=== PATIENT | female | born 1995 | race Caucasian/White ===

== ENCOUNTER 2024-11-25 19:02 | Outpatient (REF) | payer OTHER, SELFPAY ==
[2024-11-28 13:10] LABS: Age Gdln ACOG Testing Note (.); HPV Aptima Negative (Negative); IGP, Aptima HPV, rfx 16/18,45 Note (.)
== END 2024-11-25 19:03 | disposition home or self-care (01) ==
LOC: LAB 19:02
PROVIDERS: Visit Provider Obstetrics & Gynecology
DX: Z01.419 Encounter for gynecological examination (general) (routine) without abnormal findings (principal)
CPT/HCPCS: 87624; 88175

== ENCOUNTER 2024-12-17 12:56 | Outpatient (OUT) | payer OTHER, SELFPAY ==
--- OUTSIDE RECORDS SUMMARY | 2024-05-01 11:15 | XMS_ITS ---
Author Organization [facility] vices Address [address] [place], [place] [address] Care Team Providers Care Adult Remedial Education Instructor Name Role Phone Danette Lawson Primary Care Provider Edwina Jacobs REASON FOR VISIT GERD UC pt Social History Sex Assigned At : Social History Observation Description Sex Assigned At Female Encounters Encounter Location Date Provider Diagnosis Main [address] , [place] [id number] 05/01/2024 Edwina Jacobs Plan Of Treatment No Information Progress Notes * Shimon BUITRAGO LDOB: 4 (29 yo F)Acc No.[id number]:05/01/2024 Medical Note Patient: Shimon BA Provider: SYLWIA Farris :1995 A ge:28 Y S ex:Female Date:05/01/2024 Address:[address] [facility] Pcp:Danette Lawson Subjective: * Chief Complaints: * 1 . GERD UC pt. * Medical History: Objective: * Vitals: Assessment: Plan: * Treatment: * Billing Information: * Visit Code: * Procedure Codes: * Electronic signature of SYLWIA Rodriguez on 12/17/2024 at 10:22 AM EDT Sign off status: Pending * Provider: SYLWIA Farris Date: 1 Generated for Shana holloway/Naz/Audrey on: 0 12/17/2024 10:22 AM EDT
--- OUTSIDE RECORDS SUMMARY | 2024-05-01 11:30 | XMS_ITS ---
Author Organization [facility] vices Address [address], [place] [address] Care Team Providers Care Wool Hat Hydraulicker Name Role Phone Danette Lawson Primary Care Provider [phone] Jesus Whittington [phone] REASON FOR VISIT GERD Social History Sex Assigned At : Social History Observation Description Sex Assigned At Female Encounters Encounter Location Date Provider Diagnosis Main [address] [place] [id number] 05/01/2024 Jesus Delgado Plan Of Treatment No Information Progress Notes * Shimon BUITRAGO LDOB: 4 (29 yo F)Acc No.[id number]:05/01/2024 Medical Note Patient: Shimon BA Provider: Christopher Delgado PA-C :1995 A ge:28 Y S ex:Female Date:05/01/2024 Address:[address] [facility] Pcp:Danette Lawson Subjective: * Chief Complaints: * 1 . GERD. * Medical History: Objective: * Vitals: Assessment: Plan: * Treatment: * Billing Information: * Visit Code: * Procedure Codes: * Electronic signature of CYN Murry on 12/17/2024 at 10:22 AM EDT Sign off status: Pending * Provider: Christopher Delgado PA-C Date: Generated for Shana holloway/Naz/Audrey on: 0 12/17/2024 10:22 AM EDT
--- OUTSIDE RECORDS SUMMARY | 2024-12-11 09:00 | XMS_ITS | Encounter Summary ---
Author Organization [facility] Address [address] [place] [address] Care Team Providers Care Soda Tester Name Role Phone Unavailable Primary Care Provider Unavailabl e Encounter Details Date Type Department Care Team (Latest Contact Info) Description 12/11/2024 9:00 AM EDT Ancillary Procedure [facility] OB [address] [place], [place] [address] [address] Pain of ovary; Endometriosis Social History Tobacco Use Types Packs/Day Years Used Date Smoking Tobacco: Never Assessed Comments No Sex and Gender Information Value Date Recorded Sex Assigned at Not on file Legal Sex Female 11:47 PM EDT Gender Identity Not on file Sexual Orientation Not on file documented as of this encounter Plan of Treatment Upcoming Encounters Date Type Department Care Team (Late st Contact Info) Description 04/20/2025 9:10 AM EDT Consult [facility] [address] [place] [address] Lalo Friedman, [facility] [place], [place] [address] documented as of this encounter Procedures Procedure Name Priority Date/Time Associated Diagnosis Comments US PELVIC COMPLETE W/ TV Routine 12/11/2024 9:22 AM EDT Pain of ovary Endometriosis documented in this encounter Results * US Pelvis w/ TV (12/11/2024 9:22 AM EDT) Anatomical Region Laterality Modality Pelvis Ultrasound 12/11/2024 6:01 PM EDT Narrative 12/11/2024 6:01 PM EDT EXAM: Pelvic Ultrasound, Transvaginal. REASON FOR EXAM: Left lower quadrant pain, endometriosis. COMPARISON: No comparison TECHNIQUE: Grayscale imaging with color Doppler is performed. FINDINGS: Bladder: Smooth normal margins. No obvious masses or diverticula. Myometrium: Smooth normal echogenicity without focal masses. Endometrium: Normal thickness and echogenicity echogenicity without fluid. Cul-de-sac: No significant free fluid present. Right Ovary: Normal follicles. Normal size and echogenicity. Intact blood flow. Left Ovary: Anechoic structure with internal echoes left ovary 5.0 x 3.6 x 3.4 cm. Normal size and echogenicity. Intact blood flow. Measurements: Uterus: 8.0 x 3.2 x 4.9 cm Volume: 65.9 cc EM: 6 mm Normal Right Ovary: 3.0 x 1.6 x 1.6 cm Volume: 4.1 cc Left Ovary: 6.2 x 4.4 x 4.6 cm Volume: 65.0 cc IMPRESSION: 1. Possible complex cyst or endometrioma related to the left ovary measuring up to 5 cm. 2. Otherwise, negative pelvic ultrasonographic evaluation. *This report is generated using voice recognition reporting (Wooshii). On occasion [employer] erroneously drops words from the report or replaces the spoken word with similar sounding words. Please call with any questions/concerns regarding this report.* Dictated and transcribed 12/11/24/dpd This report has been electronically signed and approved by the interpreting radiologist. Procedure Note uJdson Wan MD - 12/11/2024 EXAM: Pelvic Ultrasound, Transvaginal. REASON FOR EXAM: Left lower quadrant pain, endometriosis. COMPARISON: No comparison TECHNIQUE: Grayscale imaging with color Doppler is performed. FINDINGS: Bladder: Smooth normal margins. No obvious masses or diverticula. Myometrium: Smooth normal echogenicity without focal masses. Endometrium: Normal thickness and echogenicity echogenicity withoutfluid. Cul-de-sac: No significant free fluid present. Right Ovary: Normal follicles. Normal size and echogenicity. Intact bloodflow. Left Ovary: Anechoic structure with internal echoes left ovary 5.0 x 3.6 x3.4 cm. Normal size and echogenicity. Intact blood flow. Measurements: Uterus: 8.0 x 3.2 x 4.9 cm Volume: 65.9 cc EM: 6 mm Normal Right Ovary: 3.0 x 1.6 x 1.6 cm Volume: 4.1 cc Left Ovary: 6.2 x 4.4 x 4.6 cm Volume: 65.0 cc IMPRESSION: 1. Possible complex cyst or endometrioma related to the left ovarymeasuring up to 5 cm. 2. Otherwise, negative pelvic ultrasonographic evaluation. *This report is generated using voice recognition reporting (Wooshii).On occasion Wooshii erroneously drops words from the report orreplaces the spoken word with similar sounding words. Please call with anyquestions/concerns regarding this report.* Dictated and transcribed 12/11/24/dpd This report has been electronically signed and approved by theinterpreting radiologist. us Lalo STANFORD US PROCEDURES Final Result documented in this encounter Visit Diagnoses Diagnosis Pain of ovary Endometriosis Endometriosis, site unspecified documented in this encounter
--- OUTSIDE RECORDS SUMMARY | 2024-12-17 13:04 | XMS_ITS | Clinical Summary ---
Author Organization [facility] tem Address [id number] [address] [place] [address] Care Team Providers Care Set Up Worker Name Role Phone Unavailable Primary Care Provider Unavailabl e Allergies No known active allergies Medications No known medications Social History Tobacco Use Types Packs/Day Years Used Date Smoking Tobacco: Every Day Childcare Answer Date Recorded Childcare Unknown 12/18/2018 Employment Answer Date Recorded Employment Unknown 12/18/2018 Purpose - Life Answer Date Recorded Purpose and direction in life Unknown Comments Unknown Sex and Gender Information Value Date Recorded Sex Assigned at Female 02/15/2023 8:32 AM EDT Legal Sex Female 11:48 AM EDT Gender Identity Female 02/15/2023 8:32 AM EDT Sexual Orientation Straight 02/15/2023 8: 32 AM EDT Last Filed Vital Signs Vital Sign Reading Time Taken Comments Blood Pressure 125/76 01/05/2017 1:23 AM EDT Pulse 78 01/05/2017 1:23 AM EDT Temperature 36.9 C (98.5 F) 01/05/2017 1:23 AM EDT Respiratory Rate 18 01/05/2017 1:23 AM EDT Oxygen Saturation 98% 01/05/2017 1:23 AM EDT Inhaled Oxygen Concentration - - Weight 66.7 kg (147 lb) 01/05/2017 1:23 AM EDT Height 160 cm (5' 3 ) 01/05/2017 1:23 AM EDT Body Mass Index 26.04 01/05/2017 1:23 AM EDT Plan of Treatment Not on file Medical Devices Not on file Insurance [employer]
--- OUTSIDE RECORDS SUMMARY | 2024-12-17 13:04 | XMS_ITS | Encounter Summary ---
Author Organization [facility] Address [address] [facility] [place] [address] Care Team Providers Care Photocopy Operator Name Role Phone Unavailable Primary Care Provider Unavailabl e Encounter Details Date Type Department Care Team (Latest Contact Info) Description 12/17/2024 Travel Social History Tobacco Use Types Packs/Day Years [...] Info) Description 04/20/2025 9:10 AM EDT Consult [facility] [address] [address] Lalo Friedman, DO [address] [place] [address] documented as of this encounter Visit Diagnoses Not on filedocumented in this encounter
--- OUTSIDE RECORDS SUMMARY | 2024-12-17 13:04 | XMS_ITS | Encounter Summary ---
Author Organization [facility] Address [address] [place] [address] Care Team Providers Care Bank Messenger Name Role Phone Unavailable Primary Care Provider Unavailabl e Encounter Details Date Type Department Care Team (Late st Contact Info) Description 12/09/2024 Orders Only [facility] OB [address] [place] [address] Rebecca Garcia LPN [address] [facility] [address] [place] [facility] [address] Social History Tobacco Use Types Packs/Day Years [...] Description 04/20/2025 9:10 AM EDT Consult [facility] OB [address] [place] [address] Lalo Friedman DO [address] [facility] [address] Delgado, [place] [id number] documented as of this encounter Procedures Procedure Name Priority Date/Time Associated Diagnosis Comments PAP SMEAR Routine 11/25/2024 12:00 AM EDT documented in this encounter Results * Pap Smear (11/25/2024 12:00 AM EDT) Swab Cervical swab / Unknown us [facility] Ob Elder Nurse LAB CYTOLOGY ORDERABLES Final Result EXTERNAL LAB documented in this encounter Visit Diagnoses Not on filedocumented in this encounter
--- OUTSIDE RECORDS SUMMARY | 2024-12-17 13:04 | XMS_ITS | Clinical Summary ---
Author Organization [facility] Address [address] [place] [address] Care Team Providers Care Utility Arborist Name Role Phone Unavailable Primary Care Provider Unavailabl e Allergies No known active allergies Medications loratadine (Claritin) 10 MG tablet TAKE 1 TABLET BY MOUTH ONCE DAILY FOR 90 DAYS 08/06/2024 Active pantoprazole (ProtoNix) 40 MG EC tablet TAKE 1 TABLET BY MOUTH ONCE DAILY FOR 90 DAYS 08/06/2024 Active Encounters Date Type Department Care Team Description 12/17/2024 Travel 12/11/2024 9:00 AM EDT Ancillary Procedure [facility] [address] [place] [address] Pain of ovary; Endometriosis 12/09/2024 Orders Only [facility] [address] [place] [address] Rebecca Garcia LPN 11/27/2024 Telephone [facility] [address] [place] [address] Leatha Chavarria, IT TRAINEE 11/25/2024 3:00 PM EDT Office Visit [facility] [address] [place] [address] Lalo Friedman DO Well woman exam with routine gynecological exam; Pain of ovary; Endometriosis; Menorrhagia with regular cycle 11/25/2024 Clinisync Result Encounter [facility] External Department Unsolicited Lalo Friedman DO 11/25/2024 Bamboo flowsheet [facility] [place] [address] [place] [address] Lalo Friedman DO 11/25/2024 Travel from Last 3 Months Social History Tobacco Use Types Packs/Day Years Used Date Smoking Tobacco: Never Assessed Comments No Sex and Gender Information Value Date Recorded Sex Assigned at Not on file Legal Sex Female 11:47 PM EDT Gender Identity Not on file Sexual Orientation Not on file Last Filed Vital Signs Vital Sign Reading Time Taken Comments Blood Pressure 118/72 11/25/2024 3:35 PM EDT Pulse - - Temperature - - Respiratory Rate - - Oxygen Saturation - - Inhaled Oxygen Concentration - - Weight 68.5 kg (151 lb) 11/25/2024 3:35 PM EDT Height - - Body Mass Index - - Plan of Treatment Upcoming Encounters Date Type Department Care Team (Late st Contact Info) Description 04/20/2025 9:10 AM EDT Consult [facility] [address] [place] [address] Lalo Friedman, [address] [place] [address] Procedures Procedure Name Priority Date/Time Associated Diagnosis Comments US PELVIC COMPLETE W/ TV Routine 12/11/2024 9:22 AM EDT Pain of ovary Endometriosis POCT URINALYSIS DIPSTICK Routine 11/25/2024 3:55 PM EDT Well woman exam with routine gynecological exam IGP,APTIMA HPV,AGE GDLN Routine 11/25/2024 3:30 PM EDT PAP SMEAR Routine 11/25/2024 12:00 AM EDT from Last 3 Months Results * US Pelvis w/ TV (12/11/2024 [...] report is generated using voice recognition reporting ([employer]). On occasion [employer] erroneously drops words from the report or replaces the spoken word with similar sounding words. Please call with any questions/concerns regarding this report.* Dictated and transcribed 12/11/24dpd This report has been electronically signed and approved by the interpreting radiologist. Procedure Note Judson Wan MD - 12/11/2024 EXAM: Pelvic Ultrasound, [...] report is generated using voice recognition reporting ([employer]Matic[employer]).On occasion [employer] erroneously drops words from the report orreplaces the spoken word with similar sounding words. Please call with anyquestions/concerns regarding this report.* Dictated and transcribed 12/11/24/dpd This report has been electronically signed and approved by theinterpreting radiologist. us Lalo Elder DO IMG US PROCEDURES Final Result * POCT urinalysis dipstick manually resulted (11/25/2024 3:55 PM EDT) Color, UA Yellow Clarity, UA Clear Glucose, UA Negative Negative - 2000(110) ++++ mg/dL Bilirubin, UA Negative Negative - 4(70) +++ mg/dL Ketones, UA Negative Negative - 160(16) ++++ mg/dL Spec Grav, UA 1.010 1 - 1.03 Blood, UA Negative Negative - 50 Grayson/mcL pH, UA 6.5 5 - 9 Protein, UA Negative Negative - 2000(20) ++++ mg/dL Urobilinogen, UA 0.2 0.2 - 12 mg/dL Leukocytes, UA Negative Negative - 500+++ Azeb/mcL Nitrite, UA Negative Negative - Positive Urine 11/25/2024 3:55 PM EDT us Lalo Elder DO POINT OF CARE TEST ENTER/EDIT OR DERABLES Final Result * IGP,APTIMA HPV,AGE GDLN (11/25/2024 3:30 PM EDT) AGE GDLN ACOG TESTING Note . [facility] Comment: TESTS RESULT FLAG UNITS REF RANGE LAB Clinician Provided Cytology Information Source.............Cervix;Endocervix No. of containers..01 ThinPrep Vial Age Abby Cramer... 28 FLAG LEGEND: L-Low Normal,H-High Normal,LL-Alert Low,HH-Alert High <-Panic Low,>-Panic High,A-Abnormal,AA-Critical Abnormal Performed at: 01 =[facility] [address] [place] [address] Betsy Saba MD, IGP, APTIMA HPV, RFX 16/18,45 Note . [facility] Comment: TESTS RESULT FLAG UNITS REF RANGE LAB DIAGNOSIS: 02 NEGATIVE FOR INTRAEPITHELIAL LESION OR MALIGNANCY. Specimen adequacy: 02 Satisfactory for evaluation. Endocervical and/or squamous metaplastic cells (endocervical component) are present. Performed by: 02 Mariana Henry Emission Specialist (ASCP) . 02 Note: Note 02 The Pap smear is a screening test designed to aid in the detection of premalignant and malignant conditions of the uterine cervix. It is not a diagnostic procedure and should not be used as the sole means of detecting cervical cancer. Both false-positive and false-negative reports do occur. Test Methodology: Note 02 This liquid based ThinPrep(R) pap test was screened with the use of an image guided system. HPV Genotype Reflex Note 02 Criteria not met, HPV Genotype not performed. FLAG LEGEND: L-Low Normal,H-High Normal,LL-Alert Low,HH-Alert High <-Panic Low,>-Panic High,A-Abnormal,AA-Critical Abnormal Performed at: [address] [address] Betsy Saba MD, HPV APTIMA Negative Negative [facility] Comment: This nucleic acid amplification test detects fourteen high- risk HPV types (16,18,31,33,35,39,45,51,52,56,58,59,66,68) without differentiation. Performed at: =[address] [id number] Associate Professor Of Violin: Betsy Saba MD, Phone: [phone] Performed at: [address] [id number] Associate Professor Of Violin: Betsy Saba MD, Phone: [phone] 11/25/2024 3:30 PM EDT 11/25/2024 8:43 PM EDT Narrative [facility] - 11/28/2024 1:10 PM EDT BRUSH-SPATULA CERVIX ENDOCERVIX us Lalo Elder DO LAB BLOOD ORDERABLES Final Resul t [facility] * Pap Smear (11/25/2024 12:00 AM EDT) Swab Cervical swab / Unknown us [facility] Elder Nurse LAB CYTOLOGY ORDERABLES Final Result EXTERNAL LAB from Last 3 Months Insurance [facility] [place] [place] Address: [facility] [id number] [place] [address]
[2024-12-17 13:43] LABS: Lactate Dehydrogenase 176 U/L (81-234)
[2024-12-18 04:07] LABS: AFP, Serum, Tumor Marker <1.8 ng/mL (0.0-6.4); CEA 0.7 ng/mL (0.0-4.7); Cancer Antigen (CA) 125 16.7 U/mL (0.0-38.1); HCG Tumor Marker <1 mIU/mL (.)
== END 2024-12-17 12:57 | disposition home or self-care (01) ==
PROVIDERS: Visit Provider Obstetrics & Gynecology
DX: N83.299 Other ovarian cyst, unspecified side (principal)
CPT/HCPCS: 36415; 82105; 82378; 83615; 84702; 86304

== ENCOUNTER 2025-05-04 08:44 | Outpatient (OUT) | payer OTHER, SELFPAY ==
--- OUTSIDE RECORDS SUMMARY | 2024-01-02 11:30 | XMS_ITS ---
Author Organization [facility] vices Address [address] [place], [place] [phone] Care Team Providers Care Development Scientist Name Role Phone Danette Lawson Primary Care Provider [phone] Jesus Whittington [phone] REASON FOR VISIT 5m 3rd Dose Hep B Social History Sex Assigned At : Social History Observation Description Sex Assigned At Female Encounters Encounter Location Date Provider Diagnosis [address] [id number] 01/01 Jesus Delgado Plan Of Treatment Next Appt Details Provider Name:Danette Lawson , 08/27/2025 04:00:00 PM, [address] [place], [place], [id number], Progress Notes * Shimon BUITRAGO LDOB: 4 (29 yo F)Acc No.[id number]:01/02/2024 Nurse Visit Note Patient: Jaxon ROBERTSONShimon HARMON :?CYN Rushing-CDOB:1995???Age:28 Y???Sex: FemaleDate:01/02/2024hone:[phone]:[address] [facility], [id number]:Danette Renny Subjective: * Chief Complaints: * 1 . 5m 3rd Dose Hep B. * Medical History: Objective: * Vitals: Assessment: Plan: * Treatment: * Billing Information: * Visit Code: * Procedure Codes: * Electronic signature of CYN Rushing on 05/04/2025 at 08:48 AM EDTSign off status: Pending * Provider: Christopher Delgado PA-C Date: 0 01/02/2024 Generated for Printing/Faxing/eTransmitting on:?05/04/2025 08:48 AM EDT
--- OUTSIDE RECORDS SUMMARY | 2024-04-28 10:45 | XMS_ITS ---
Author Organization [facility] vices Address [address] [place] [phone] Care Team Providers Care Raise Drill Operator Name Role Phone Renny Danette Primary Care [...] Date Provider Diagnosis Main [address] [place] [id number] 04/28/2024 Danette Lawson Plan Of Treatment Next Appt Details Provider Name:Danette Lawson , 08/27/2025 04:00:00 PM, [address] [place], [place], [id number], Progress Notes * Shimon BUITRAGO LDOB: 4 (29 yo F)Acc No.[id number]:04/28/2024 Medical Note Patient: Jaxon Shimon KUHN :?Danette LawsonDOB:1995???Age:28 Y???Sex: FemaleDate:04/28/2024hone:[phone]:[address] [facility], [id number] Subjective: * Chief Complaints: * 1 . [...] * Electronic signature of FLAKITA Hess on 05/04/2025 at 08:47 AM EDTSign off status: Pending * Provider: Aura Lawson Date: Generated for Printing/Faxing/eTransmitting on:?05/04/2025 08:47 AM EDT
--- OUTSIDE RECORDS SUMMARY | 2024-05-01 11:15 | XMS_ITS ---
Author Organization [facility] vices Address [address] [place] [phone] Care Team Providers Care Epidemiology Investigator Name Role Phone Danette Lawson Primary Care Provider Edwina Jacobs [phone] REASON FOR VISIT GERD UC pt Social History Sex Assigned At : Social History Observation Description Sex Assigned At Female Encounters Encounter Location Date Provider Diagnosis Main [address] [place], [place] [phone] 05/01/2024 Edwina Jacobs Plan Of Treatment Next Appt Details Provider Name:Danette Lawson , 08/27/2025 04:00:00 PM, [address], [place], [phone], Progress Notes * Shimon BUITRAGO LDOB: 4 (29 yo F)Acc No.[id number]:05/01/2024 Medical Note Patient: Jaxon KUHN Shimon Braga :?Edwina Jacobs NP-CDOB:1995???Age:28 Y ???Sex:FemaleDate:05/01/2024hone:[phone]:[address] [facility], [id number]:Danette Lawson Subjective: * Chief Complaints: * 1 . GERD UC pt. * Medical History: Objective: * Vitals: Assessment: Plan: * Treatment: * Billing Information: * Visit Code: * Procedure Codes: * Electronic signature of SYLWIA Olsno on 05/04/2025 at 08:48 AM EDT Sign off status: Pending * Provider: SYLWIA Farris Date: Generated for Printing/Faxing/eTransmitting on:?05/04/2025 08:48 AM EDT
--- OUTSIDE RECORDS SUMMARY | 2024-05-01 11:30 | XMS_ITS ---
Author Organization [facility] vices Address [address] [place] [phone] Care Team Providers Care Ios Architect Name Role Phone Danette Lawson Primary Care Provider [phone] Jesus Delgado [phone] REASON FOR VISIT GERD Social History Sex Assigned At : Social History Observation Description Sex Assigned At Female Encounters Encounter Location Date Provider Diagnosis Main [address] [place] [id number] 05/01/2024 Jesus Delgado Plan Of Treatment Next Appt Details Provider Name:Danette Elamland , 08/27/2025 04:00:00 PM, [address] [place], [id number], Progress Notes * Shimon BUITRAGO LDOB: 4 (29 yo F)Acc No.[id number]:05/01/2024 Medical Note Patient: Atilio BArufina Braga :?CYN Rushing-CDOB:1995???Age:28 Y???Sex: FemaleDate:05/01/2024hone:[phone]:[address] [facility], [id number]:Danette Lawson Subjective: * Chief Complaints: * 1 . GERD. * Medical History: Objective: * Vitals: Assessment: Plan: * Treatment: * Billing Information: * Visit Code: * Procedure Codes: * Electronic signature of CYN Rushing on 05/04/2025 at 08:47 AM EDTSign off status: Pending * Provider: Christopher Delgado PA-C Date: Generated for Printing/Faxing/eTransmitting on:?05/04/2025 08:47 AM EDT
--- OUTSIDE RECORDS SUMMARY | 2025-04-20 09:10 | XMS_ITS | Encounter Summary ---
Author Organization [facility] Address [address] [place] [address] Care Team Providers Care Csr Retail Name Role Phone Unavailable Primary Care Provider Unavailabl e Reason for Visit * ReasonCommentsPre-op Visit Encounter Details DateTypeDepartmentCare Team (Latest Contact Info)Haxcxhtrbcm83/13/2025 9:10 AM EDTConsult [facility] [place] [facility] [address] [place] [place] [phone] Lalo Friedman DO [address] [place] [address] Pre-op examination; Menorrhagia with regular cycle; Pelvic pain in female; Dysmenorrhea; Dyspareunia, female; Complex ovarian cyst; Endometriosis Social History Tobacco UseTypesPacks/DayYears UsedDateSmoking Tobacco: Never Assessed CommentsNoSex and Gender InformationValueDate RecordedSex Assigned at BirthNot on fileLegal NeuFijeft84/15/2023 11:47 PM EDTGender IdentityNot on fileSexual OrientationNot on filedocumented as of this encounter Last Filed Vital Signs Vital SignReadingTime TakenCommentsBlood Pqvwjmvt303/6804/20/2025 9:03 AM EDT Pulse--Temperature--Respiratory Rate--Oxygen Saturation--Inhaled Oxygen Concentration--Lpyilp42.5 kg (151 lb)04/20/2025 9:03 AM OYXPsjzkk602.6 cm (5' 4 )04/20/2025 9:03 AM EDTBody Mass Index25.9204/20/2025 9:03 AM EDTdocumented in this encounter Progress Notes * Misty Segura - 04/20/2025 9:10 AM EDT Reason for Appointment: Patient ID: Shimon Linares is a 29 y.o. female who presents for Pre-op Visit Patient presents today for Pre Op appointment. Patient is scheduled to undergo Da Nadia assisted Laparoscopic Hysterectomy, possible exploratory laparotomy, possible BSO, possible cystoscopy on 05/14/[address] Friedman at [facility]. MEDICATIONS Current Outpatient Medications Medication Instructions loratadine (Claritin) 10 MG tablet TAKE 1 TABLET BY MOUTH ONCE DAILY FOR 90 DAYS pantoprazole (ProtoNix) 40 MG EC tablet TAKE 1 TABLET BY MOUTH ONCE DAILY FOR 90 DAYS ALLERGIES No Known Allergies PROBLEMS Active Ambulatory Problems Diagnosis Date Noted No Active Ambulatory Problems Resolved Ambulatory Problems Diagnosis Date Noted No Resolved Ambulatory Problems No Additional Past Medical History HISTORY PAST MEDICAL HISTORY SOCIAL HISTORY No past medical history on file. Social History Tobacco Use Smoking status: Not on file Smokeless tobacco: Not on file Substance Use Topics Alcohol use: Not on file Drug use: Not on file FAMILY HISTORY No family history on file. SURGICAL HISTORY Past Surgical History: Procedure Laterality Date ENDOMETRIAL ABLATION 2022 TUBAL LIGATION Bilateral 2019 REVIEW OF SYSTEMS Review of Systems: Review of Systems Constitutional: Negative. HENT: Negative. Eyes: Negative. Respiratory: Negative. Cardiovascular: Negative. Gastrointestinal: Negative. Genitourinary: Positive for dyspareunia, menstrual problem and pelvic pain. Musculoskeletal: Negative. Skin: Negative. Neurological: Negative. All other systems reviewed and are negative. Hematological: Negative. Endocrine: Negative. Allergic/Immunologic: Negative. OBJECTIVE Objective: Physical Exam Constitutional: Appearance: Normal appearance. She is well-developed. Cardiovascular: Rate and Rhythm: Normal rate and regular rhythm. Pulmonary: Effort: Pulmonary effort is normal. Breath sounds: Normal breath sounds. Abdominal: General: Bowel sounds are normal. There is no distension. Palpations: Abdomen is soft. Tenderness: There is no abdominal tenderness. There is no guarding or rebound. Musculoskeletal: General: No swelling. Normal range of motion. Right lower leg: No edema. Left lower leg: No edema. Neurological: Mental Status: She is alert and oriented to person, place, and time. Skin: General: Skin is warm and dry. Psychiatric: Mood and Affect: Mood normal. Behavior: Behavior normal. Vitals and nursing note reviewed. Exam conducted with a cafe helper present. Vitals: Estimated body mass index is 25.92 kg/m?? as calculated from the following: Height as of this encounter: 5' 4 . Weight as of this encounter: 151 lb. BP: 108/68 No LMP recorded. ASSESSMENT & PLAN ICD-10-CM 1. Pre-op examination Z01.818 2. Menorrhagia with regular cycle N92.0 3. Pelvic pain in female R10.20 4. Dysmenorrhea N94.6 5. Dyspareunia, female N94.10 6. Complex ovarian cyst N83.299 7. Endometriosis N80.9 Pre Op: Patient is doing well but has complaints of menorrhagia, pelvic pain, dyspareunia, dysmenorrhea, endometriosis, and complex ovarian cysts. I have discussed conservative management vs. surgical management with the patient in detail and patient desires surgical management at this time. Patient will un dergo Da Nadia assisted Laparoscopic Hysterectomy, possible exploratory laparotomy, possible BSO, possible cystoscopy on 05/14/2025. Surgical consents were signed, mmc was reviewed, and patient is to proceed to [facility] OR. Follow Up: Patient is to follow up at 1 & 6 weeks post operative to assess proper healing and recovery from procedure. Documented by Leatha Chavarria LPN on behalf of: Lalo Friedman DO documented in this encounter Plan of Treatment Not on file documented as of this encounter Visit Diagnoses Diagnosis Pre-op examination Menorrhagia with regular cycle Pelvic pain in female Unspecified symptom associated with female genital organs Dysmenorrhea Dyspareunia, female Complex ovarian cyst Endometriosis Endometriosis, site unspecified documented in this encounter
--- OUTSIDE RECORDS SUMMARY | 2025-05-04 08:47 | XMS_ITS | Encounter Summary ---
Author Organization [facility] Address [address] [place] [address] Care Team Providers Care Child Life Specialist Name Role Phone Unavailable Primary Care Provider Unavailabl e Encounter Details DateTypeDepartmentCare Team (Latest Contact Info)Zmgdcbxmdvk90/13/2025Bamboo flowsheet [facility] [place] [facility] [address] [place] [address] Lalo Friedman DO [address] [place], [facility] Social History Tobacco UseTypesPacks/DayYears UsedDateSmoking Tobacco: Never Assessed CommentsNoSex and Gender InformationValueDate RecordedSex Assigned at BirthNot on fileLegal HmsJtswzj93/15/2023 11:47 PM EDTGender IdentityNot on fileSexual OrientationNot on filedocumented as of this encounter Plan of Treatment Not on file documented as of this encounter Visit Diagnoses Not on filedocumented in this encounter
--- OUTSIDE RECORDS SUMMARY | 2025-05-04 08:47 | XMS_ITS | Clinical Summary ---
Author Organization [facility] Address [address] [place] [address] Care Team Providers Care Side Seam Tender Name Role Phone Unavailable Primary Care Provider Unavailabl e Allergies No known active allergies Medications MedicationSigDispense QuantityRefillsLast FilledStart DateEnd DateStatus loratadine (Claritin) 10 MG tablet TAKE 1 TABLET BY MOUTH ONCE DAILY FOR 90 DAYS5Active pantoprazole (ProtoNix) 40 MG EC tablet TAKE 1 TABLET BY MOUTH ONCE DAILY FOR 90 DAYS5Active Encounters DateTypeDepartmentCare JnhrOjfkowbrbdk53/13/2025 9:10 AM EDTConsult [facility] [address] [address] Lalo Friedman DO Pre-op examination; Menorrhagia with regular cycle; Pelvic pain in female; Dysmenorrhea; Dyspareunia, female; Complex ovarian cyst; Brshnszulhhrx23/13/2025amboo flowsheet [facility] [address] [address] Lalo Friedman DO from Last 3 Months Social History Tobacco UseTypesPacks/DayYears UsedDateSmoking Tobacco: Never Assessed CommentsNoSex and Gender InformationValueDate RecordedSex Assigned at BirthNot on fileLegal FjuCapsop91/15/2023 11:47 PM EDTGender IdentityNot on fileSexual OrientationNot on file Last Filed Vital Signs Vital SignReadingTime TakenCommentsBlood Stfrpppy930/6804/20/2025 9:03 AM EDT Pulse--Temperature--Respiratory Rate--Oxygen Saturation--Inhaled Oxygen Concentration--Uamoey06.5 kg (151 lb)04/20/2025 9:03 AM JZEJvyrzi357.6 cm (5' 4 )04/20/2025 9:03 AM EDTBody Mass Index25.9204/20/2025 9:03 AM EDT Plan of Treatment Not on file Insurance
--- OUTSIDE RECORDS SUMMARY | 2025-05-04 08:48 | XMS_ITS | Clinical Summary ---
Author Organization [facility] tem Address [id number] [address] [place] [address] Care Team Providers Care Speed Winder Name Role Phone Unavailable Primary Care Provider Unavailabl e Allergies No known active allergies Medications No known medications Social History Tobacco UseTypesPacks/DayYears UsedDateSmoking Tobacco: Every DayChildcareAnswer Date ApwtnuxxHrdjsjgddAtldzoi70/12/2019EmploymentAnswerDate RecordedEmployment Tjaaewc0912/18/2018Purpose - LifeAnswerDate RecordedPurpose and direction in life Alweywa83/11/2021CommentsUnknownSex and Gender InformationValueDate RecordedSex Assigned at YgmziOgoqwb82/10/2023 8:32 AM EDTLegal SexFemale 02/11/2015 11:48 AM EDTGender KcabgtlxJthmko46/10/2023 8:32 AM EDTSexual ZfnqpmioineNyjfqjew28/10/2023 8:32 AM EDT Last Filed Vital Signs Vital SignReadingTime TakenCommentsBlood Nqchaxbt858/7606 1:23 AM EDT Fttoj6660 1:23 AM CJZKmxeyvvfwmq32.9 ??C (98.5 ??F)01/05/2017 1:23 AM EDTRespiratory Rcwm2078 1:23 AM EDTOxygen Cvfbntepzn64%01/05/2017 1:23 AM EDTInhaled Oxygen Concentration--Qguqvv16.7 kg (147 lb)01/05/2017 1:23 AM EDT Hywgyq422 cm (5' 3 )01/05/2017 1:23 AM EDTBody Mass Index26.04001/05/2017 1:23 AM EDT Plan of Treatment Not on file Medical Devices Not on file Insurance
--- NOTE | 2025-05-04 09:29 | XR_ITS ---
The [address] [address] Patient Name: ELBERT BUITRAGO MRN: [id number] date: 1995 Sex: F [facility] Accession/Order Number: [id number] Exam Date: 05/04/2025 09:35 Report Date: 05/04/2025 11:37 At the request of: YAMINI AGUIRRE DO Procedure: XR chest 2V PA AND LATERAL CHEST: CLINICAL HISTORY: Preoperative clearance . Patient currently vapes. COMPARISON: None There is no focal parenchymal consolidation, effusion or pneumothorax. The cardiac, hilar and mediastinal silhouettes are within normal limits. There is no vascular congestion. The visualized bony thorax is intact. XR/XR chest 2V IMPRESSION: NO ACUTE CARDIOPULMONARY ABNORMALITY. Impression dictated by: Angelica Caldwell M.D. 05/04/2025 11:37 AM Dictation Location: [place] [address] Electronically authenticated by: [id number] Y Date: 05/04/2025 11:37
[2025-05-04 10:01] LABS: Hematocrit 43.9 % (36.0-48.0); Hemoglobin 15.1 g/dL (12.0-16.0); Immature Granulocytes Abs Auto 0.01 10^3/uL (0.00-0.03); Immature Granulocytes Pct Auto 0.2 % (0.0-0.5); Lymphocytes Absolute Auto 1.2 10^3/uL (1.2-3.8); Mean Corpuscular HGB Conc 34.4 g/dL (29.9-35.2); Mean Corpuscular Hemoglobin 29.5 pg (26.7-34.0); Mean Corpuscular Volume 85.7 fL (81.0-99.0); Platelet Count 228 10^3/uL (150-450); Red Blood Count 5.12 10^6/uL (4.20-5.40); White Blood Count 5.3 10^3/uL (4.0-11.0)
[2025-05-04 10:11] LABS: Alanine Aminotransferase 31 U/L (14-59); Albumin Globulin Ratio 1.1; Albumin Level 4.1 g/dL (3.4-5.0); Alkaline Phosphatase 75 U/L (46-116); Anion Gap 9.1; Aspartate Amino Transferase 14 U/L (15-37); Blood Urea Nitrogen 10.0 mg/dL (7.0-18.0); Calcium 8.9 mg/dL (8.5-10.1); Carbon Dioxide 31.1 mmol/L (21.0-32.0); Chloride 105 mmol/L (98-107); Estimated GFR (African America >60 (>=60 mL/min/1.73m^2); Estimated GFR (Non-African Ame >60 (>=60 mL/min/1.73m^2); Globulin 3.7 g/dL; Glucose 94 mg/dL (74-106); Potassium 4.2 mmol/L (3.5-5.1); Sodium 141 mmol/L (136-145); Total Protein 7.8 g/dL (6.4-8.2)
[2025-05-04 10:23] LABS: INR 0.99; Partial Thromboplastin Time 31.5 sec (22.3-36.2); Prothrombin Time 10.5 sec (9.0-11.6)
== END 2025-05-04 08:45 | disposition home or self-care (01) ==
LOC: PST 08:45
PROVIDERS: Visit Provider Obstetrics & Gynecology
DX: Z01.810 Encounter for preprocedural cardiovascular examination (principal); Z01.812 Encounter for preprocedural laboratory examination; N92.0 Excessive and frequent menstruation with regular cycle; N94.6 Dysmenorrhea, unspecified; N94.10 Unspecified dyspareunia; N83.299 Other ovarian cyst, unspecified side; N80.9 Endometriosis, unspecified
CPT/HCPCS: 71046; 80048; 80076; 85025; 85610; 85730; 86850; 86900; 86901

== ENCOUNTER 2025-05-14 10:52 | Day surgery (SDC) | payer OTHER, SELFPAY ==
--- OUTSIDE RECORDS SUMMARY | 2024-01-02 10:30 | XMS_ITS ---
Author Organization [facility] vices Address [address] [place], [place] [address] Care Team Providers Care Therapist Speech Name Role Phone Danette Lawson Primary Care Provider [phone] Jesus Whittintgon [phone] REASON FOR VISIT 5m 3rd Dose Hep B Social History Sex Assigned At : Social History Observation Description Sex Assigned At Female Encounters Encounter Location Date Provider Diagnosis [address] [id number] 01/01 Jesus Delgado Plan Of Treatment Next Appt Details Provider Name:Danette Lawson , 08/27/2025 04:00:00 PM, [address] [place], [place], [phone], Progress Notes * Shimon BUITRAGO LDOB: 4 (29 yo F)Acc No.[id number]:01/02/2024 Nurse Visit Note Patient: Jaxon ROBERTSONShimon HARMON :?CYN Rushing-CDOB:1995???Age:28 Y???Sex: FemaleDate:01/02/2024hone:[phone]:[address] [facility], [id number]:Danette Renny Subjective: * Chief Complaints: * 1 . 5m 3rd Dose Hep B. * Medical History: Objective: * Vitals: Assessment: Plan: * Treatment: * Billing Information: * Visit Code: * Procedure Codes: * Electronic signature of CYN Rushing on 05/14/2025 at 10:56 AM ESTSign off status: Pending * Provider: Christopher Delgado PA-C Date: 0 01/02/2024 Generated for Printing/Faxing/eTransmitting on:?05/14/2025 10:56 AM EST
--- OUTSIDE RECORDS SUMMARY | 2024-04-28 09:45 | XMS_ITS ---
Author Organization [facility] vices Address [address] [place] [phone] Care Team Providers Care Spinner Hand Name Role Phone Renny Danette Primary Care Provider REASON FOR VISIT GERD, Rash knee Medications Medication SIG (Take, Route, Frequency, Duration) Notes Start Date End Date Status Loratadine 10 MG take 1 tablet by mouth once tegan ly; Duration: 90 ActiveMontelukast Sodium 10 MG1 tablet Orally Once a day; Duration: 90 days 12/17/2023ctiveBenzonatate 100 MG1 capsule as needed Orally Three times a day; Duration: 15 days12/17/2023ctivePantoprazole Sodium 40 MG1 tablet Orally Once a day; Duration: 90 days01/31/2023ctive Social History Sex Assigned At : Social History Observation Description Sex Assigned At Female Encounters Encounter Location Date Provider Diagnosis Main [address] [place] [id number] 04/28/2024 Danette Lawson Plan Of Treatment Next Appt Details Provider Name:Danette Lawson , 08/27/2025 04:00:00 PM, [address] [place], [phone], Progress Notes * Shimon BUITRAGO LDOB: 4 (29 yo F)Acc No.[id number]:04/28/2024 Medical Note Patient: Jaxon Shimon KUHN :?Danette LawsonDOB:1995???Age:28 Y???Sex: FemaleDate:04/28/2024hone:[phone]:[address] [facility], [id number] Subjective: * Chief Complaints: * 1 . GERD, Rash knee. * Medical History: * Medications: T aking Pantoprazole Sodium 40 MG Tablet Delayed Release 1 tablet Orally Once a day , Taking Benzonatate 100 MG Capsule 1 capsule as needed Orally Three times a day , Taking Montelukast Sodium 10 MG Tablet 1 tablet Orally Once a day , Taking Loratadine 10 MG Tablet take 1 tablet by mouth once daily Objective: * Vitals: Assessment: Plan: * Treatment: * Billing Information: * Visit Code: * Procedure Codes: * Electronic signature of FLAKITA Hess on 05/14/2025 at 10:56 AM ESTSign off status: Pending * Provider: Aura Lawson Date: Generated for Printing/Faxing/eTransmitting on:?05/14/2025 10:56 AM EST
--- OUTSIDE RECORDS SUMMARY | 2024-05-01 10:15 | XMS_ITS ---
Author Organization [facility] vices Address [address] [place] [phone] Care Team Providers Care Stop Attacher Name Role Phone Danette Lawson Primary Care Provider Edwina Jacobs [phone] REASON FOR VISIT GERD UC pt Social History Sex Assigned At : Social History Observation Description Sex Assigned At Female Encounters Encounter Location Date Provider Diagnosis Main [address] [place], [place] [phone] 05/01/2024 Edwina Jacobs Plan Of Treatment Next Appt Details Provider Name:Danette Lawson , 08/27/2025 04:00:00 PM, [address] [place], [phone], Progress Notes * Shimon BUITRAGO LDOB: 4 (29 yo F)Acc No.[id number]:05/01/2024 Medical Note Patient: Jaxon KUHN Shimon Braga :?Edwina Jacobs NP-CDOB:1995???Age:28 Y ???Sex:FemaleDate:05/01/2024hone:[phone]:[address] [facility], [id number]:Danette Lawson Subjective: * Chief Complaints: * 1 . GERD UC pt. * Medical History: Objective: * Vitals: Assessment: Plan: * Treatment: * Billing Information: * Visit Code: * Procedure Codes: * Electronic signature of SYLWIA Olson on 05/14/2025 at 10:56 AM EST Sign off status: Pending * Provider: SYLWIA Farris Date: Generated for Printing/Faxing/eTransmitting on:?05/14/2025 10:56 AM EST
--- OUTSIDE RECORDS SUMMARY | 2024-05-01 10:30 | XMS_ITS ---
Author Organization [facility] vices Address [address] [place] [phone] Care Team Providers Care Multi Share Program Coordinator Name Role Phone Danette Lawson Primary Care Provider Jesus Delgado [phone] REASON FOR VISIT GERD Social History Sex Assigned At : Social History Observation Description Sex Assigned At Female Encounters Encounter Location Date Provider Diagnosis Main [address] [place] [id number] 05/01/2024 Jesus Delgado Plan Of Treatment Next Appt Details Provider Name:Danette Elamland , 08/27/2025 04:00:00 PM, [address] [place], [phone], Progress Notes * Shimon BUITRAGO LDOB: 4 (29 yo F)Acc No.[id number]:05/01/2024 Medical Note Patient: Atilio BArufina Braga :?CYN Rushing-CDOB:1995???Age:28 Y???Sex: FemaleDate:05/01/2024hone:[phone]:[address] [facility], [id number]:Danette Lawson Subjective: * Chief Complaints: * 1 . GERD. * Medical History: Objective: * Vitals: Assessment: Plan: * Treatment: * Billing Information: * Visit Code: * Procedure Codes: * Electronic signature of CYN Rushing on 05/14/2025 at 10:56 AM ESTSign off status: Pending * Provider: Christopher Delgado PA-C Date: Generated for Printing/Faxing/eTransmitting on:?05/14/2025 10:56 AM EST
[2025-05-04 09:39] VITALS: BP 117/77; PULSE 71; TEMP 36.4; O2SAT 100; BMI 25.7
[2025-05-14] VITALS (13 sets, daily range): BP systolic 107–123; BP diastolic 56–75; PULSE 58–88; TEMP 36.2–36.5; O2SAT 93–100; BMI 26.1
--- OUTSIDE RECORDS SUMMARY | 2025-05-14 10:56 | XMS_ITS | Encounter Summary ---
Author Organization [facility] Address [address] [place] [address] Care Team Providers Care Animation Director Name Role Phone Unavailable Primary Care Provider Unavailabl e Encounter Details DateTypeDepartmentCare Team (Latest Contact Info)Ubieeuokbkm83/27/2025linisync Result Encounter [facility] External Department Unsolicited Lalo Friedman, DO [address] [place] [address] Social History Tobacco UseTypesPacks/DayYears UsedDateSmoking Tobacco: Never Assessed CommentsNoSex and Gender InformationValueDate RecordedSex Assigned at BirthNot on fileLegal FyoPzboco68/15/2023 11:47 PM EDTGender IdentityNot on fileSexual OrientationNot on filedocumented as of this encounter Plan of Treatment Not on file documented as of this encounter Procedures Procedure NamePriorityDate/TimeAssociated DiagnosisCommentsXR CHEST 2V1 11:37 AM EDT documented in this encounter Results * XR CHEST 2V (05/04/2025 11:37 AM EDT)Anatomical RegionLateralityModalityOther Specimen (Source)Anatomical Location / LateralityCollection Method / Volume Collection TimeReceived Time05/04/2025 11:37 AM EDT Narrative 05/04/2025 11:40 AM EDT [facility] ?[address] ? [place] [address] ?XRay Report ? Signed ? Patient: FOUKE,SHMION L ?MR#: [id number] ?? : 1995 ?Acct:[id number] ?? Age/Sex: 29 / F ?ADM Date: 10/27/25 ?? Loc: PST ? Attending Dr: Lalo Friedman D.O. ? Ordering Physician: Lalo Friedman D.O. ?? Date of Service: 05/04/25 ?? Procedure(s): XR chest 2V ?? Accession Number(s): [id number] ? cc: Lalo Friedman D.O.; Danette Lawson FRENCH DRAWER ? [facility] ? [address] ? [place] [address] ? Patient Name: ?? SHIMON BUITRAGO ? MRN: [facility]:[id number] ? date: 1995 ?Sex: F ?? Assigned Patient Location: SURGOUT ?? Current Patient Location: SURGOUT ?? Accession/Order Number: [id number] ?? Exam Date: 05/04/2025 ??09:35 ?Report Date: 05/04/2025 ??11:37 ? At the request of: ?? LALO ??TIMOTHY ??DO ? Procedure: ??XR chest 2V ? PA AND LATERAL CHEST: ? CLINICAL HISTORY: Preoperative clearance . Patient currently vapes. ? COMPARISON: None ? There is no focal parenchymal consolidation, effusion or pneumothorax. ?? The ?? cardiac, hilar and mediastinal silhouettes are within normal limits. ?? There ?? is no vascular congestion. ?? The visualized bony thorax is intact. ? XR/XR chest 2V ?? IMPRESSION: ? NO ACUTE CARDIOPULMONARY ABNORMALITY. ? Impression dictated by: Angelica Caldwell M.D. ??05/04/2025 11:37 AM ? Dictation Location: [facility]- ? Electronically authenticated by: [id number] ??Y ?? Date: 05/04/2025 ??11:37 ? Dictated By: ?Angelica Caldwell M.D. ? Signed By: ?05/04/25 1140 ? DD/ 1137 ? TD/TT: ? Flux Core Welder: Procedure Note Radiology, Radiologist, MD - 05/04/[address] [address] XRay Report Signed Patient: SHIMON BUITRAGO LMR#: [id number] : 1995Acct:[id number] Age/Sex: 29 / FADM Date: 05/04/25 Loc: PST Attending Dr: Lalo Friedman D.O. Ordering Physician: Lalo Friedman D.O. Date of Service: 05/04/25 Procedure(s): XR chest 2V Accession Number(s): [id number] cc: Lalo Friedman D.O.; Danette Lawson NP [place] [address] Patient Name: SHIMON BUITRAGO MRN: [facility]:[id number] date: 1995 Sex: F Assigned Patient Location: SURGOUT Current Patient Location: [facility] Accession/Order Number: [id number] Exam Date: 05/04/2025 09:35 Report Date: 05/04/2025 11:37 At the request of: LALO FRIEDMAN DO Procedure: XR chest 2V PA AND LATERAL CHEST: CLINICAL HISTORY: Preoperative clearance . Patient currently vapes. COMPARISON: None There is no focal parenchymal consolidation, effusion or pneumothorax.The cardiac, hilar and mediastinal silhouettes are within normal limits.There is no vascular congestion. The visualized bony thorax is intact. XR/XR chest 2V IMPRESSION: NO ACUTE CARDIOPULMONARY ABNORMALITY. Impression dictated by: Angelica Caldwell M.D. 05/04/2025 11:37 AM Dictation Location: [place] [address] Electronically authenticated by: [id number] Y Date: 1:37 Dictated By: Angelica Caldwell M.D. Signed By:05/04/25 1140 DD/ 1137 TD/TT: Flux Core Welder: Authorizing ProviderResult TypeResult StatusCoretray Friedman DOCLINISYNC IMAGINGFinal Result documented in this encounter Visit Diagnoses Not on filedocumented in this encounter
--- OUTSIDE RECORDS SUMMARY | 2025-05-14 10:56 | XMS_ITS | Clinical Summary ---
Author Organization [facility] Address [address] [place] [address] Care Team Providers Care Denier Control Operator Name Role Phone Unavailable Primary Care Provider Unavailabl e Allergies No known active allergies Medications MedicationSigDispense QuantityRefillsLast FilledStart DateEnd DateStatus loratadine (Claritin) 10 MG tablet TAKE 1 TABLET BY MOUTH ONCE DAILY FOR 90 DAYS5Active pantoprazole (ProtoNix) 40 MG EC tablet TAKE 1 TABLET BY MOUTH ONCE DAILY FOR 90 DAYS5Active Encounters DateTypeDepartmentCare WptwTfcixhexjuc26/27/2025linisync Result Encounter [facility] External Department Unsolicited Lalo Friedman DO 05/04/2025linisync Result Encounter [facility] External Department Unsolicited Lalo Friedman DO 04/20/2025 9:10 AM EDTConsult [facility] [place] [facility] [address] [place] [address] Lalo Friedman DO Pre-op examination; Menorrhagia with regular cycle; Pelvic pain in female; Dysmenorrhea; Dyspareunia, female; Complex ovarian cyst; Hqlmwdxohmzmv63/13/2025amboo flowsheet [facility] [place] [facility] [address] [place] [address] Lalo Friedman DO from Last 3 Months Social History Tobacco UseTypesPacks/DayYears UsedDateSmoking Tobacco: Never Assessed CommentsNoSex and Gender InformationValueDate RecordedSex Assigned at BirthNot on fileLegal EenYtqvdz22/15/2023 11:47 PM EDTGender IdentityNot on fileSexual OrientationNot on file Last Filed Vital Signs Vital SignReadingTime TakenCommentsBlood Tbwzzfiw833/6804/20/2025 9:03 AM EDT Pulse--Temperature--Respiratory Rate--Oxygen Saturation--Inhaled Oxygen Concentration--Ixgpwd39.5 kg (151 lb)04/20/2025 9:03 AM NVMOcynwp221.6 cm (5' 4 )04/20/2025 9:03 AM EDTBody Mass Index25.9204/20/2025 9:03 AM EDT Plan of Treatment Not on file Procedures Procedure NamePriorityDate/TimeAssociated DiagnosisCommentsXR CHEST 2V1 11:37 AM EDT ALL TYPE AND CVUVCZZrblgtf09/27/2025 9:35 AM EDT [facility] EPAOSnsuycf40/27/2025 9:35 AM EDT SRMCOH PROTHROMBIN TIME INR W/O MEMPWzwzeox42/27/2025 9:35 AM EDT ALL BASIC METABOLIC CLYHCHkppskk75/27/2025 9:35 AM EDT HMHP LIVER QCNSBJfdhgxa07/27/2025 9:35 AM EDT ALL CBC WITH AUTO XFELAjkzrdi73/27/2025 9:35 AM EDT from Last 3 Months Results * XR CHEST 2V (05/04/2025 11:37 AM EDT)Anatomical RegionLateralityModalityOther Specimen (Source)Anatomical Location / LateralityCollection Method / Volume Collection TimeReceived Time05/04/2025 11:37 AM EDT Narrative 05/04/2025 11:40 AM EDT [facility] ?[address] ? [place] [address] ?XRay Report ? Signed ? Patient: IFTIKHAR,SHIMON L ?MR#: [id number] ?? : 1995 ?Acct:[id number] ?? Age/Sex: 29 / F ?ADM Date: 10/27/25 ?? Loc: PST ? Attending Dr: Lalo Friedman D.O. ? Ordering Physician: Lalo Friedman D.O. ?? Date of Service: 05/04/25 ?? Procedure(s): XR chest 2V ?? Accession Number(s): [id number] ? cc: Lalo Friedman D.O.; Danette Lawson USER SUPPORT SPECIALIST ? [facility] ? [address] ? [place] [address] ? Patient Name: ?? SHIMON LINARES ? MRN: [facility]:[id number] ? date: 1995 ?Sex: F ?? Assigned Patient Location: SURGOUT ?? Current Patient Location: SURGOUT ?? Accession/Order Number: [id number] ?? Exam Date: 05/04/2025 ??09:35 ?Report Date: 05/04/2025 ??11:37 ? At the request of: ?? LALO ??ELDER ??DO ? Procedure: ??XR chest 2V ? [...] M.D. ??05/04/2025 11:37 AM ? Dictation Location: [place] [address] ? Electronically authenticated by: [id number] ??Y ?? Date: 05/04/2025 ??11:37 ? Dictated By: ?Angelica Caldwell M.D. ? Signed By: ?05/04/25 1140 ? DD/ 1137 ? TD/TT: ? Content Manager: Procedure Note Radiology, Radiologist, MD - 05/04/[address] [address] XRay Report Signed Patient: SHIMON LINARES LMR#: [id number] : 1995Acct:[id number] Age/Sex: 29 / FADM Date: 05/04/25 Loc: PST Attending Dr: Lalo Friedman D.O. Ordering Physician: Lalo Friedman D.O. Date of Service: 05/04/25 Procedure(s): XR chest 2V Accession Number(s): [id number] cc: Lalo Friedman D.O.; Danette Lawson NP [place] [id number] Patient Name: SHIMON LINARES MRN: [facility]:[id number] date: 1995 Sex: F Assigned Patient Location: SURGOUT Current Patient Location: [facility] Accession/Order Number: [id number] Exam Date: 05/04/2025 09:35 Report Date: 05/04/2025 [...] Caldwell M.D. 05/04/2025 11:37 AM Dictation Location: [place] [address] Electronically authenticated by: [id number] Y Date: 1:37 Dictated By: Angelica Caldwell M.D. Signed By:05/04/25 1140 DD/ 1137 TD/TT: Content Manager: Authorizing ProviderResult TypeResult StatusCorey Elder DOCLINISYNC IMAGINGFinal Result * SRMCOH PROTHROMBIN TIME INR W/O COUM (05/04/2025 9:35 AM EDT)ComponentValueRef RangeTest MethodAnalysis TimePerformed AtPathologist SignaturePROTHROMBIN TIME 10.59.0 - 11.6 secTBHTBH INR0.99TBHComment: DESIRED INR: 2.0-3.0 CONDITIONS NOT LISTED BELOW 2.5-3.5 FOR PROSTHETIC HEART VALVE REPLACEMENT 2.5-3.5 RECURRENT THROMBOSIS Specimen (Source)Anatomical Location / LateralityCollection Method / Volume Collection TimeReceived Time10/ 9:35 AM EDT1 9:50 AM EDT Narrative [facility] - 05/04/2025 10:24 AM EDT Authorizing ProviderResult TypeResult StatusCorey Elder DOCLINISYNCFinal Result Performing OrganizationAddressCity/State/ZIP CodePhone Number [facility] * (ABNORMAL) [facility] LIVER PANEL (05/04/2025 9:35 AM EDT)ComponentValueRef Range Test MethodAnalysis TimePerformed AtPathologist SignatureBILIRUBIN TOTAL0.60.2 - 1.0 mg/dLTBHBILIRUBIN DIRECT0.10.0 - 0.2 mg/dLTBHASPARTATE AMINO TRANSFERASE 14(L)15 - 37 U/LTBHALANINE MLSGIGUTSDXNKMUM8276 - 59 U/LTBHALKALINE SMTTDBBZEBB3618 - 116 U/LTBHTOTAL PROTEIN7.86.4 - 8.2 g/dLTBHALBUMIN LEVEL4.1 3.4 - 5.0 g/dLTBHGLOBULIN3.7g/dLTBHALBUMIN GLOBULIN RATIO1.1TBHSpecimen (Source)Anatomical Location / LateralityCollection Method / VolumeCollection TimeReceived Time05/04/2025 9:35 AM EDT1 9:50 AM EDT Narrative [facility] - 05/04/2025 10:12 AM EDT Authorizing ProviderResult TypeResult StatusCorey Elder DOCLINISYNCFinal Result Performing OrganizationAddressCity/State/ZIP CodePhone Number [facility] * [facility] APTT (05/04/2025 9:35 AM EDT)ComponentValueRef RangeTest MethodAnalysis TimePerformed AtPathologist SignaturePARTIAL THROMBOPLASTIN TIME31.522.3 - 36.2 secTBHSpecimen (Source)Anatomical Location / LateralityCollection Method / VolumeCollection TimeReceived Time05/04/2025 9:35 AM EDT1 9:50 AM EDT Narrative [facility] - 05/04/2025 10:24 AM EDT Authorizing ProviderResult TypeResult StatusCorey Elder DOCLINISYNCFinal Result Performing OrganizationAddressCity/State/ZIP CodePhone Number [facility] * ALL TYPE AND SCREEN (05/04/2025 9:35 AM EDT)ComponentValueRef RangeTest Method Analysis TimePerformed AtPathologist SignatureBLOOD TYPEA PositiveTBHANTIBODY SCREENNEGATIVETBHSpecimen (Source)Anatomical Location / LateralityCollection Method / VolumeCollection TimeReceived Time05/04/2025 9:35 AM EDT1 9:50 AM EDT Narrative [facility] - 05/04/2025 11:10 AM EDT [facility] , ?? Authorizing ProviderResult TypeResult StatusCorey Elder DOCLINISYNCFinal Result Performing OrganizationAddressCity/State/ZIP CodePhone Number [facility] * ALL CBC WITH AUTO DIFF (05/04/2025 9:35 AM EDT)ComponentValueRef RangeTest MethodAnalysis TimePerformed AtPathologist SignatureTBH WBC5.34.0 - 11.0 10 3/uLTBHTBH RBC5.124.20 - 5.40 10 6/uLTBHTBH HGB15.112.0 - 16.0 g/dLTBHTBH HCT 43.936.0 - 48.0 %TBHTBH MCV85.781.0 - 99.0 fLTBHTBH MCH29.526.7 - 34.0 pgTBH TBH MCHC34.429.9 - 35.2 g/dLTBHTBH RDW11.911.0 - 15.0 %TBHTBH WOV418037 - 450 10 3/uLTBHTBH MPV11.09.5 - 13.5 fLTBHNEUTROPHILS PERCENT AUTO65.443.0 - 75.0 % TBHLYMPHOCYTES PERCENT AUTO21.920.5 - 60.0 %TBHMONOCYTES PERCENT AUTO10.21.7 - 12.0 %TBHTBH EO %1.90.9 - 7.0 %TBHBASOPHILS PERCENT AUTO0.40.2 - 2.0 %TBH IMMATURE GRANULOCYTES PCT AUTO0.20.0 - 0.5 %TBHNEUTROPHILS ABSOLUTE AUTO3.51.4 - 6.5 10 3/uLTBHLYMPHOCYTES ABSOLUTE AUTO1.21.2 - 3.8 10 3/uLTBHMONOCYTES ABSOLUTE AUTO0.50.3 - 0.8 10 3/uLTBHTBH EO #0.10.0 - 0.7 10 3/uLTBHBASOPHILS ABSOLUTE AUTO0.00.0 - 0.1 10 3/uLTBHIMMATURE GRANULOCYTES ABS AUTO0.010.00 - 0.03 10 3/uLTBHSpecimen (Source)Anatomical Location / LateralityCollection Method / VolumeCollection TimeReceived Time05/04/2025 9:35 AM EDT1 9:50 AM EDT Narrative [facility] - 05/04/2025 10:02 AM EDT Authorizing ProviderResult TypeResult StatusCorey Elder DOCLINISYNCFinal Result Performing OrganizationAddressCity/State/ZIP CodePhone Number [facility] * ALL BASIC METABOLIC PANEL (05/04/2025 9:35 AM EDT)ComponentValueRef RangeTest MethodAnalysis TimePerformed AtPathologist UxazqkavtHUZEZQ461821 - 145 mmol/L TBHPOTASSIUM4.23.5 - 5.1 mmol/EQPWYLNHKXCI17903 - 107 mmol/LTBHCARBON DIOXIDE 31.121.0 - 32.0 mmol/LTBHANION GAP9.4YWYZRDQJUX8065 - 106 mg/dLTBHBLOOD UREA IRFDJXBT98.07.0 - 18.0 mg/dLTBHCREATININE0.770.55 - 1.02 mg/dLTBHTBH EGFR-AF [place]>60>=60 mL/min/1.73m 2TBHTBH EGFR-NON AF [place]>60>=60 mL/min/1.73m 2TBHBUN CREATININE RATIO13.6HCXPBTGAJQ1.98.5 - 10.1 mg/dLTBHSpecimen (Source) Anatomical Location / LateralityCollection Method / VolumeCollection Time Received Time05/04/2025 9:35 AM EDT1 9:50 AM EDT Narrative [facility] - 05/04/2025 10:12 AM EDT Authorizing ProviderResult TypeResult StatusCorey Elder DOCLINISYNCFinal Result Performing OrganizationAddressCity/State/ZIP CodePhone Number [facility] from Last 3 Months Insurance [facility] Address: [facility] [address] [address]
--- OUTSIDE RECORDS SUMMARY | 2025-05-14 10:56 | XMS_ITS | Encounter Summary ---
Author Organization [facility] Address [address] [place] [address] Care Team Providers Care Building Services Engineer Name Role Phone Unavailable Primary Care Provider Unavailabl e Encounter Details DateTypeDepartmentCare Team (Latest Contact Info)Vkoivimbhpz78/27/2025linisync Result Encounter [facility] External Department Unsolicited Lalo Friedman, DO [address] [place], [place] [id number] Social History Tobacco UseTypesPacks/DayYears UsedDateSmoking Tobacco: Never Assessed CommentsNoSex and Gender InformationValueDate RecordedSex Assigned at BirthNot on fileLegal UedFdwnwz90/15/2023 11:47 PM EDTGender IdentityNot on fileSexual OrientationNot on filedocumented as of this encounter Plan of Treatment Not on file documented as of this encounter Procedures Procedure NamePriorityDate/TimeAssociated DiagnosisCommentsSRMCOH PROTHROMBIN TIME INR W/O LDOBRmjxfwb46/27/2025 9:35 AM EDT HM[facility] LIVER XQHFQYygjmon54/27/2025 9:35 AM EDT [facility] GDIYBxnlcgn78/27/2025 9:35 AM EDT ALL TYPE AND YQHDRCJrztaoh13/27/2025 9:35 AM EDT ALL CBC WITH AUTO JCHIDufbleh48/27/2025 9:35 AM EDT ALL BASIC METABOLIC WHVNLWjtseqs72/27/2025 9:35 AM EDT documented in this encounter Results * ALL TYPE AND SCREEN (05/04/2025 9:35 AM EDT)ComponentValueRef RangeTest Method Analysis TimePerformed AtPathologist SignatureBLOOD TYPEA PositiveTBHANTIBODY SCREENNEGATIVETBHSpecimen (Source)Anatomical Location / LateralityCollection Method / VolumeCollection TimeReceived Time05/04/2025 9:35 AM EDT1 9:50 AM EDT Narrative [facility] - 05/04/2025 11:10 AM EDT [facility] , ?? Authorizing ProviderResult TypeResult StatusCorey Elder DOCLINISYNCFinal Result Performing OrganizationAddressCity/State/ZIP CodePhone Number [facility] * CCF APTT (05/04/2025 9:35 AM EDT)ComponentValueRef RangeTest MethodAnalysis TimePerformed AtPathologist SignaturePARTIAL THROMBOPLASTIN TIME31.522.3 - 36.2 secTBHSpecimen (Source)Anatomical Location / LateralityCollection Method / VolumeCollection TimeReceived Time05/04/2025 9:35 AM EDT1 9:50 AM EDT Narrative [facility] - 05/04/2025 10:24 AM EDT Authorizing ProviderResult TypeResult StatusCorey [facility] DOCLINISYNCFinal Result Performing OrganizationAddressCity/State/ZIP CodePhone Number [facility] * SRMCOH PROTHROMBIN TIME INR W/O COUM (05/04/2025 9:35 AM EDT)ComponentValueRef RangeTest MethodAnalysis TimePerformed AtPathologist SignaturePROTHROMBIN TIME 10.59.0 - 11.6 secTBHTBH INR0.99TBHComment: DESIRED INR: 2.0-3.0 CONDITIONS NOT LISTED BELOW 2.5-3.5 FOR PROSTHETIC HEART VALVE REPLACEMENT 2.5-3.5 RECURRENT THROMBOSIS Specimen (Source)Anatomical Location / LateralityCollection Method / Volume Collection TimeReceived Time05/04/2025 9:35 AM EDT1 9:50 AM EDT Narrative [facility] - 05/04/2025 10:24 AM EDT Authorizing ProviderResult TypeResult StatusCorey Elder DOCLINISYNCFinal Result Performing OrganizationAddressty/State/ZIP CodePhone Number [facility] * ALL BASIC METABOLIC PANEL (05/04/2025 9:35 AM EDT)ComponentValueRef RangeTest MethodAnalysis TimePerformed AtPathologist YoajvqzuiTXJPTR234223 - 145 mmol/L TBHPOTASSIUM4.23.5 - 5.1 mmol/FWKFBAAHNUPQ82742 - 107 mmol/LTBHCARBON DIOXIDE 31.121.0 - 32.0 mmol/LTBHANION GAP9.4IBTPAXDDJU4861 - 106 mg/dLTBHBLOOD UREA JYGXUYRH22.07.0 - 18.0 mg/dLTBHCREATININE0.770.55 - 1.02 mg/dLTBHTBH EGFR-AF [place]>60>=60 mL/min/1.73m 2TBHTBH EGFR-NON AF [place]>60>=60 mL/min/1.73m 2TBHBUN CREATININE RATIO13.8QJLYSXZEDH4.98.5 - 10.1 mg/dLTBHSpecimen (Source) Anatomical Location / LateralityCollection Method / VolumeCollection Time Received Time05/04/2025 9:35 AM EDT1 9:50 AM EDT Narrative [facility] - 05/04/2025 10:12 AM EDT Authorizing ProviderResult TypeResult StatusCorey [facility] DOCLINISYNCFinal Result Performing OrganizationAdd[facility]/State/ZIP CodePhone Number [facility] * (ABNORMAL) [facility] LIVER PANEL (05/04/2025 9:35 AM EDT)ComponentValueRef Range Test MethodAnalysis TimePerformed AtPathologist SignatureBILIRUBIN TOTAL0.60.2 - 1.0 mg/dLTBHBILIRUBIN DIRECT0.10.0 - 0.2 mg/dLTBHASPARTATE AMINO TRANSFERASE 14(L)15 - 37 U/LTBHALANINE SDGQRJETGDOHRZKR6409 - 59 U/LTBHALKALINE BCPRJCYQEKC2078 - 116 U/LTBHTOTAL PROTEIN7.86.4 - 8.2 g/dLTBHALBUMIN LEVEL4.1 3.4 - 5.0 g/dLTBHGLOBULIN3.7g/dLTBHALBUMIN GLOBULIN RATIO1.1TBHSpecimen (Source)Anatomical Location / LateralityCollection Method / VolumeCollection TimeReceived Time05/04/2025 9:35 AM EDT1 9:50 AM EDT Narrative [facility] - 05/04/2025 10:12 AM EDT Authorizing ProviderResult TypeResult StatusCorey Elder DOCLINISYNCFinal Result Performing OrganizationAddressCity/State/ZIP CodePhone Number [facility] * ALL CBC WITH AUTO DIFF (05/04/2025 9:35 AM EDT)ComponentValueRef RangeTest MethodAnalysis TimePerformed AtPathologist SignatureTBH WBC5.34.0 - 11.0 10 3/uLTBHTBH RBC5.124.20 - 5.40 10 6/uLTBHTBH HGB15.112.0 - 16.0 g/dLTBHTBH HCT 43.936.0 - 48.0 %TBHTBH MCV85.781.0 - 99.0 fLTBHTBH MCH29.526.7 - 34.0 pgTBH TBH MCHC34.429.9 - 35.2 g/dLTBHTBH RDW11.911.0 - 15.0 %TBHTBH AMU338418 - 450 10 3/uLTBHTBH MPV11.09.5 - 13.5 [...] Elder DOCLINISYNCFinal Result Performing OrganizationAddressCity/State/ZIP CodePhone Number [facility] TB documented in this encounter Visit Diagnoses Not on filedocumented in this encounter
[2025-05-14 11:09] LABS: Hematocrit 41.7 % (36.0-48.0); Hemoglobin 14.0 g/dL (12.0-16.0); Immature Granulocytes Abs Auto 0.01 10^3/uL (0.00-0.03); Immature Granulocytes Pct Auto 0.2 % (0.0-0.5); Lymphocytes Absolute Auto 1.5 10^3/uL (1.2-3.8); Mean Corpuscular HGB Conc 33.6 g/dL (29.9-35.2); Mean Corpuscular Hemoglobin 28.9 pg (26.7-34.0); Mean Corpuscular Volume 86.0 fL (81.0-99.0); Platelet Count 235 10^3/uL (150-450); Red Blood Count 4.85 10^6/uL (4.20-5.40); White Blood Count 5.3 10^3/uL (4.0-11.0)
[2025-05-14] MEDS: CEFAZOLIN SODIUM 1 GM/50 ML D5W PREMIX IV (14:03)
--- NOTE | 2025-05-14 15:02 | PM.ONB ---
Brief Operative Note Date of procedure: 05/14/25 Pre-op diagnosis general: menorrhagia, failed ablation, dysmenorrhea, pelvic pain Post-op diagnosis: same as pre-op Procedure: NAME OF PROCEDURE: ? Robotic assisted laparoscopic hysterectomy with cystoscopy, bilateral salpingectomy PROCEDURE:? The patient was taken back to the operating room, where she was prepped and draped in the normal sterile fashion after being placed in the dorsal lithotomy position.? Patient?s anesthesia was found to be adequate.? Surgical timeout was performed using two patient identifiers.? SCDs were on and in place.? Two grams of Ancef were given prior to the surgery.? Sterile Mac catheter was inserted.? Standard size VCare was secured to the uterine cervix and the surgeon changed gloves.? Attention then was turned to the patient's abdomen, where a supraumbilical incision was then made.? Two S retractors were used to identify the patient?s fascia.? The fascia was then tented up using Leann clamps and the patient?s fascia was incised sharply.? Patient?s abdomen was identified and entered bluntly.? The patient had the trocar placed and a pneumoperitoneum was obtained.? Approximately 4 liters of CO2 gas was used.? The camera was then placed through the trocar.? At this time, two robot trocars were placed in the patient?s left and right side, two hand widths from the midline, and this was placed under direct visualization.? The patient?s tube on the right side was tented up and the vessel sealer was then used to come across the mesosalpinx, and this was carried down to the uterine ovarian ligament.? The vessel sealer was carried down serially to the broad ligament, to the area of the bladder flap, which was then created anteriorly, and the uterine arteries were skeletonized and sealed using the vessel sealer.? The colpotomy was made using the monopolar cautery on cut, and this was carried circumferentially, posteriorly to anteriorly, until the uterus was amputated.? The specimen was then removed intact through the vagina, without difficulty.? The vagina was then closed using two running V-Loc in a non-lock fashion.? The robot was undocked.? The abdomen was desufflated.? The skin defects were closed using 4-0 Vicryl.? Please note, the fascia was closed using 0 Vicryl.? Sponge, lap and needle counts were correct x2.? Patient was taken to recovery room in stable condition.? The patient was awakened by Anesthesia first.? Patient tolerated procedure well.??Please note left ovarian cystectomy was performed using the vessel sealer Anesthesia: YAIMA Surgeon: Lalo Friedman Channel Marketing Specialist: Tianna Murguia Estimated blood loss (mL): 100 Pathology: other (uterus and cervix) Condition: stable Disposition: PACU Urinary Catheter Management Urinary Catheter Management Urethral: Cath placed during this visit: no
[2025-05-14] MEDS: HYDROMORPHONE HCL 0.5 MG/0.5 ML SYRINGE IV (16:53)
[2025-05-14] MEDS: IBUPROFEN 400 MG TABLET 800 MG PO (20:11)
[2025-05-14] MEDS: CEFAZOLIN SODIUM/DEXTROSE,ISO 2 GM/50 ML PIGGYBACK IV (20:15)
[2025-05-14 21:59] LABS: Hematocrit 37.7 % (36.0-48.0); Hemoglobin 12.7 g/dL (12.0-16.0); Mean Corpuscular HGB Conc 33.7 g/dL (29.9-35.2); Mean Corpuscular Hemoglobin 29.3 pg (26.7-34.0); Mean Corpuscular Volume 86.9 fL (81.0-99.0); Platelet Count 211 10^3/uL (150-450); Red Blood Count 4.34 10^6/uL (4.20-5.40); White Blood Count 11.1 10^3/uL (4.0-11.0)
[2025-05-14 22:22] LABS: Basophils Abs Manual 0.00 10^3/uL (0.00-0.10); Basophils Percent Manual 0.0 % (0.2-2.0); Eosinophils Absolute Manual 0.00 10^3/uL (0.00-0.70); Eosinophils Percent Manual 0.0 % (0.9-7.0); Lymphocytes Absolute Manual 0.44 10^3/uL (1.20-3.80); Lymphocytes Percent Manual 4.0 % (20.5-60.0); Monocytes Absolute Manual 0.33 10^3/uL (0.30-0.80); Monocytes Percent Manual 3.0 % (1.7-12.0); Segmented Neut Absolute Manual 10.32 10^3/uL (1.4-6.5); Segmented Neutrophils % Manual 93.0 (43.0-75.0)
--- NOTE | 2025-05-15 09:05 | PC.NURSE ---
follow up appt with Dr. Friedman on 05/21 @ 9:50am
--- NOTE | 2025-05-15 13:29 | CM.DCFOLLOWU ---
Person spoke with: Shimon How are you feeling? I'm still pretty uncomfortable How is your pain? Still having some pain Did you understand your discharge instructions? Yes Do you have any questions about your discharge instructions? No Were you given any prescriptions at discharge? Yes Were you able to get your prescriptions filled? Yes Do you understand how to take your medications as ordered? Yes Do you have any questions about your follow up appointment and do you plan to keep your follow up appointment? Patient notified that she was scheduled a follow up with Dr. Friedman on 05/21 at 9:50 am Is there anything else that you would like to discuss? No Questions/Comments/Concerns/Other:
== END 2025-05-14 23:39 | disposition home or self-care (01) ==
LOC: SURGOUT 16:19 → MS 18:13
PROVIDERS: Visit Provider Obstetrics & Gynecology
PROC: (CPT 840; principal; 2025-05-14 12:30)
DX: N92.0 Excessive and frequent menstruation with regular cycle (principal); N94.6 Dysmenorrhea, unspecified; N94.10 Unspecified dyspareunia; N80.9 Endometriosis, unspecified; N83.299 Other ovarian cyst, unspecified side; F17.290 Nicotine dependence, other tobacco product, uncomplicated; K21.9 Gastro-esophageal reflux disease without esophagitis; Z98.51 Tubal ligation status
CPT/HCPCS: 58571; 58662; 36415; 84702; 85007; 85025; 85027; 88307; 94667; J0131; J0330; J0690; J1100; J1171; J1885; J2405; J2704